=== PATIENT | female | born 2000 | race African-American/Black ===

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

== ENCOUNTER 2020-10-29 21:35 | Emergency (ER) | payer OTHER ==
[~2020-10-29] VITALS: Ht 170.2 cm; Wt 179.4 kg
[2020-10-29 22:42] LABS: URINE BILIRUBIN NEGATIVE (Negative); URINE BLOOD NEGATIVE (Negative); URINE CLARITY CLEAR; URINE COLOR YELLOW; URINE GLUCOSE-RANDOM NEGATIVE (Negative); URINE KETONES TRACE (Negative); URINE LEUKOCYTES-REFLEX NEGATIVE (Negative); URINE NITRITE-REFLEX NEGATIVE (Negative); URINE PROTEIN NEGATIVE (Negative)
[2020-10-29 22:52] LABS: AMP/METHAMP Negative (Negative); BARBITURATES Negative (Negative); BENZODIAZEPINES Negative (Negative); COCAINE Negative (Negative); METHADONE Negative (Negative); OPIATES Negative (Negative); PCP Negative (Negative); THC Negative (Negative)
[2020-10-30] MEDS ORDERED: ZOFRAN ODT4 MG PO (00:35)
[2020-10-30] MEDS ORDERED: HYDROCODON-ACE1 EAC8 PO (00:35)
[2020-10-30 01:02] VITALS: BP 149/65
== END 2020-10-30 01:02 | disposition home or self-care (01) ==
LOC: M.ERS 21:35
PROVIDERS: Emergency Medicine
DX: R42 Dizziness and giddiness (principal); F07.81 Postconcussional syndrome; M19.90 Unspecified osteoarthritis, unspecified site; Z88.1 Allergy status to other antibiotic agents; Z79.899 Other long term (current) drug therapy

== ENCOUNTER 2021-06-18 23:02 | Emergency (ER) | payer OTHER ==
[~2021-06-18] VITALS: Ht 177.8 cm; Wt 176.0 kg
[~2021-06-18 23:02] MED LIST changes: +HYDROCODON-ACE1 EAC8 PO; +ZOFRAN ODT4 MG PO
[2021-06-18 23:13] VITALS: BP 176/98
[2021-06-18] MEDS ORDERED: VITAMIN D310 MC3 PO (23:18)
[2021-06-18] MEDS ORDERED: LEVOTHYROXINE25 MC1 PO (23:18)
[2021-06-19] MEDS ORDERED: TRAMADOL 50 MG50 MG PO (00:10)
== END 2021-06-19 01:04 | disposition home or self-care (01) ==
LOC: M.ERS 23:02
DX: M25.561 Pain in right knee (principal); M25.551 Pain in right hip; M19.90 Unspecified osteoarthritis, unspecified site; E03.9 Hypothyroidism, unspecified; Z79.899 Other long term (current) drug therapy; Z88.1 Allergy status to other antibiotic agents